=== PATIENT | female | born 1990 | race Caucasian/White ===

== ENCOUNTER 2016-12-04 17:09 | Emergency (ER) | payer OTHER, MEDICARE, MEDICAID ==
[~2016-12-04] VITALS: Ht 139.7 cm; Wt 35.0 kg
[~2016-12-04 17:09] MED LIST: PREN29TA PO; VENTAER INH
[2016-12-04 17:11] VITALS: BP 121/83; PULSE 108; RESP 22; TEMP 98.5; O2SAT 96
--- NOTE | 2016-12-04 17:32 | PD ---
Physical Exam Date Seen by Provider: Dec 04, 2016 Time Seen by Provider: 17:31 Narrative 26 yo female here for and elevated HR. [facility] Told HR was high but no treatment. 11 weeks . No issues. Vitals are stable in triage. Awaiting bed placement. Data Data Last Documented VS Vital Signs Date Time Temp Pulse Resp B/P (MAP) Pulse Ox O2 Delivery O2 Flow Rate FiO2 12/04/16 17:11 98.5 108 22 121/83 (96) 96 MDM Medical Record Reviewed: Yes Supervised Visit with JASE: No David Fuentes Dec 04, 2016 17:32
[2016-12-04 19:05] LABS: BETA HCG QUANT 151413 MIU/ML (0-5)
[2016-12-04] MEDS: SODIUM CHLOR 0.9% 1000 ML INJ 1,000 ML IV SCH ×2 (21:13→22:08)
[2016-12-04] MEDS ORDERED: ALBU0.08 NEB (21:17)
--- NOTE | 2016-12-04 21:20 | PD ---
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 Because of her history of myotonic dystrophy she has a home heart rate/ pulse oximetry that she uses occasionally. She reports that the past 5-6 days her heart rate has been elevated between 120-140 bpm. She has felt occasionally that her heart rate is elevated as well. Because of her she's been feeling anxious because of this. She called her [facility] who is in [place] and she was referred to the emergency room. She was seen at [facility] 4 days ago about this issue where lab work and EKG studies were performed. She was told that she has bronchitis and she was started on azithromycin and prednisone. She reports that the prednisone made her vomit and so she quit taking it. The heart rate has been persistently elevated and so she was referred here for reevaluation. She denies abdominal pain, chest pain, shortness of breath however she does report that her pulse oximetry has been occasionally showing 93% when her usual pulse oximetry is around 97%. She denies calf or leg swelling or pain, cough, congestion, fevers, chills, myalgias. She has no other complaints. [facility] Past Medical History COPD: Yes Medical other: Yes (MYOTONIC DYSTROPHY) Musculoskeletal: Yes Respiratory: Yes (COPD) ?: LMP: 09/15/16 : 2 Miscarriage: 1 Dilation and Curettage (D&C): Yes Past Surgical History Oral Surgery: Yes (TEETH REMOVAL) Other Surgery: Yes (DIAPHRAM TIGHTENING, TRACH REVERSAL, PEG REVERSAL) Social History Alcohol Use: No Tobacco Use: No Substance Use: No Allergies-Medications (Allergen,Severity, Reaction): Coded Allergies: Iodinated Contrast- Oral and IV Dye (Verified Allergy, Severe, RASH, ) clindamycin (Unverified Allergy, Severe, Rash, 12/04/16) Uncoded Allergies: PAPER TAPE (Adverse Reaction, Mild, Skin Discoloration, 03/13/16) Reported Meds & Prescriptions Reported Meds & Active Scripts Active Reported Albuterol Neb (Albuterol Sulfate) 2.5 Mg/3 Ml Neb 2.5 Mg NEB Q4HR Plus Iron 29-1 mg ( Vit-Iron Carbonyl) 1 Tab Tab 1 Tab PO DAILY Review of Systems Except as stated in HPI: all other systems reviewed are Neg Physical Exam Narrative GENERAL: Well-developed well-nourished female in no acute distress, heart rate 91-107, pulse oximetry 97%. SKIN: Warm and dry. HEAD: Atraumatic. Normocephalic. EYES: Pupils equal and round. No scleral icterus. No injection or drainage. ENT: No nasal bleeding or discharge. Mucous membranes pink and moist. NECK: Trachea midline. No JVD. CARDIOVASCULAR: Regular rate and rhythm. No murmur appreciated. RESPIRATORY: No accessory muscle use. Clear to auscultation. Breath sounds equal bilaterally. GASTROINTESTINAL: Abdomen soft, non-tender, nondistended. Hepatic and splenic margins not palpable. MUSCULOSKELETAL: No obvious deformities. No clubbing. No cyanosis. No edema. NEUROLOGICAL: Awake and alert. No obvious cranial nerve deficits. Motor grossly within normal limits. Normal speech. PSYCHIATRIC: Appropriate mood and affect; insight and judgment normal. Data Data Last Documented VS Vital Signs Date Time Temp Pulse Resp B/P (MAP) Pulse Ox O2 Delivery O2 Flow Rate FiO2 12/04/16 17:11 98.5 108 22 121/83 (96) 96 Orders Orders Electrocardiogram (12/04/16 ) Beta Hcg (Quant/Titer) (12/04/16 17:49) Complete Blood Count With Diff (12/04/16 21:13) Comprehensive Metabolic Panel (12/04/16 21:13) Magnesium (Mg) (12/04/16 21:13) Urinalysis - C+S If Indicated (12/04/16 21:13) Iv Access Insert/Monitor (12/04/16 21:13) Sodium Chlor 0.9% 1000 Ml Inj (Ns 1000 M (12/04/16 21:13) Ecg Monitoring (12/04/16 21:20) Labs Laboratory Tests Test 12/04/16 18:10 12/04/16 21:45 12/04/16 22:00 Blood Urea Nitrogen 12 MG/DL Creatinine 0.38 MG/DL Random Glucose 83 MG/DL Total Protein 7.9 GM/DL Albumin 3.8 GM/DL Calcium Level 9.8 MG/DL Magnesium Level 1.8 MG/DL Alkaline Phosphatase 87 U/L Aspartate Amino Transf (AST/SGOT) 35 U/L Alanine Aminotransferase (ALT/SGPT) 38 U/L Total Bilirubin 0.2 MG/DL Sodium Level 134 MEQ/L Potassium Level 4.4 MEQ/L Chloride Level 97 MEQ/L Carbon Dioxide Level 28.4 MEQ/L Anion Gap 9 MEQ/L Estimat Glomerular Filtration Rate 205 ML/MIN Human Chorionic Gonadotropin, Quant 601257 MIU/ML Urine Color LIGHT-YELLOW Urine Turbidity CLOUDY Urine pH 8.0 Urine Specific [place] 1.011 Urine Protein NEG mg/dL Urine Glucose (UA) NEG mg/dL Urine Ketones NEG mg/dL Urine Occult Blood TRACE Urine Nitrite NEG Urine Bilirubin NEG Urine Urobilinogen LESS THAN 2.0 MG/DL Urine Leukocyte Esterase NEG Urine RBC 1 /hpf Urine WBC 1 /hpf Urine Squamous Epithelial Cells 2 /hpf Urine Amorphous Sediment RARE Microscopic Urinalysis Comment CULT NOT INDICATED White Blood Count 9.7 TH/MM3 Red Blood Count 4.50 MIL/MM3 Hemoglobin 13.7 GM/DL Hematocrit 41.3 % Mean Corpuscular Volume 91.9 FL Mean Corpuscular Hemoglobin 30.5 PG Mean Corpuscular Hemoglobin Concent 33.2 % Red Cell Distribution Width 14.0 % Platelet Count 311 TH/MM3 Mean Platelet Volume 7.0 FL Neutrophils (%) (Auto) 68.3 % Lymphocytes (%) (Auto) 24.2 % Monocytes (%) (Auto) 7.5 % Eosinophils (%) (Auto) 0.0 % Basophils (%) (Auto) 0.0 % Neutrophils # (Auto) 6.6 TH/MM3 Lymphocytes # (Auto) 2.3 TH/MM3 Monocytes # (Auto) 0.7 TH/MM3 Eosinophils # (Auto) 0.0 TH/MM3 Basophils # (Auto) 0.0 TH/MM3 CBC Comment DIFF FINAL Differential Comment MDM Medical Decision Making Medical Screen Exam Complete: Yes Emergency Medical Condition: Yes Medical Record Reviewed: Yes Interpretation(s) EKG sinus tachycardia rate 106 Differential Diagnosis Sinus tachycardia versus PVCs versus PACs versus atrial fibrillation versus dehydration versus ventricular tachycardia versus electrolyte abnormality versus anemia Narrative Course 26-year-old female currently 11 weeks , history of myotonic dystrophy, presents for evaluation of elevated heart rate. She reports that her heart rate with has been between 120 and 140 at her home pulse oximetry past 5-6 days. Minimally symptomatic. No shortness of breath or chest pain. Pulse oximetry 93% on home pulse oximetry. During her evaluation here her heart rate has been between 91 and 107 and a pulse oximetry has been 97% which is her baseline. She has no evidence of DVT and her symptoms are not suggestive of PE. Really there may be degree of hypovolemia/dehydration which could be causing her elevated heart rate. With a history of a heart rate between 120 and 140 she may benefit from outpatient Holter monitoring. The patient's lab work is been reviewed and found to be unremarkable. A chest x -ray was initially ordered but the patient declined it. After speaking with the patient further seems that she has been very anxious about this because she has had 2 miscarriages in the past and she feels that her anxiety has been the primary contributing factor to her elevated heart rate. During her hospital stay here she has been quite stable. At this point in time the plan would be to have the patient follow-up with her primary care physician and discuss Holter monitoring. She is stable for discharge. Procedures Procedure Narrative Bedside ultrasound: Ultrasound was performed revealing an intrauterine with a heart rate of 174. Diagnosis Primary Impression: Qualified Codes: Z34.90 - Encounter for supervision of normal , unspecified, unspecified trimester Additional Impressions: Anxiety Tachycardia Additional Instructions: As discussed, follow-up closely with your primary care physician to discuss the option of Holter monitoring. Return for any acutely new or worsening symptoms. Med/Other Pt SpecificInfo: No Change to Meds Disposition: 01 DISCHARGE HOME Condition: Stable Arjun Richard Dec 04, 2016 21:20
[2016-12-04 22:10] LABS: BLOOD, URINE TRACE (NEG); COMMENT (UR) CULT NOT INDICATED; CULTURE IF INDICATED CULT NOT INDICATED; GLUCOSE,URINE NEG (NEG); KETONE, URINE NEG (NEG); NITRITE,URINE NEG (NEG); SQUAMOUS EPITHELIAL CELL URINE 2 /hpf (0-5); URINE COLOR LIGHT-YELLOW (YELLW/STRAW)
[2016-12-04 22:10] LABS: ANION GAP 9 MEQ/L (5-15); AST (GOT) 35 U/L (15-37); BICARBONATE 28.4 MEQ/L (21.0-32.0); BLOOD UREA NITROGEN 12 MG/DL (7-18); CHLORIDE 97 MEQ/L (98-107); GLOMERULAR FILTRATION RATE 205 ML/MIN (>89); MAGNESIUM 1.8 MG/DL (1.5-2.5); POTASSIUM 4.4 MEQ/L (3.5-5.1); SODIUM (NA) 134 MEQ/L (136-145)
[2016-12-04 22:11] LABS: ALT (GPT) 38 U/L (10-53)
[2016-12-04 22:13] LABS: ALKALINE PHOSPHATASE 87 U/L (45-117); TOTAL BILIRUBIN ADULT 0.2 MG/DL (0.2-1.0)
[2016-12-04 22:27] LABS: AUTOMATED NEUTROPHIL # 6.6 TH/MM3 (1.8-7.7); HEMATOCRIT 41.3 % (35.0-46.0); HEMO FLAGS DIFF FINAL; LYMPH % 24.2 % (9.0-44.0); LYMPHOCYTE # 2.3 TH/MM3 (1.0-4.8); MEAN CELL VOLUME 91.9 FL (80.0-100.0); MEAN CORPUSCULAR HEMOGLOBIN 30.5 PG (27.0-34.0); MEAN CORPUSCULAR HGB CONC 33.2 % (32.0-36.0); MONO % 7.5 % (0.0-8.0); NEUT % 68.3 % (16.0-70.0); PLATELET COUNT 311 TH/MM3 (150-450); WHITE BLOOD COUNT 9.7 TH/MM3 (4.0-11.0)
--- NOTE | 2016-12-05 17:35 | EKG ---
Date Performed: 12/04/2016 Time Performed: 17:56:14 PTAGE: 26 years EKG: SINUS TACHYCARDIA ABNORMAL RHYTHM ECG NO PREVIOUS TRACING DOCTOR: Shabbir Orona Interpretating Date/Time 12/05/2016 17:33:36
== END 2016-12-04 23:14 | disposition home or self-care (01) ==
LOC: NEPD 17:09
DX: O99.341 Other mental disorders complicating pregnancy, first trimester (principal); F41.9 Anxiety disorder, unspecified; O26.891 Other specified pregnancy related conditions, first trimester; R00.0 Tachycardia, unspecified; G71.11 Myotonic muscular dystrophy; J44.9 Chronic obstructive pulmonary disease, unspecified; R94.31 Abnormal electrocardiogram [ECG] [EKG]; Z3A.11 11 weeks gestation of pregnancy; Z34.91 Encounter for supervision of normal pregnancy, unspecified, first trimester
CPT/HCPCS: 80053; 81001; 83735; 84702; 85025; 93005; 96360; 99284; J7030